=== PATIENT | male | born 2000 | race Caucasian/White ===

== ENCOUNTER 2020-09-18 06:58 | Emergency (ER) | payer OTHER ==
[2020-09-18 07:03] VITALS: TEMP 98
[2020-09-18] MEDS ORDERED: KETOROLAC 15 MG/ML 1 ML VIAL IM STA (07:21)
--- NOTE | 2020-09-18 07:40 | XR ---
EXAMINATION TYPE: XR chest 2V DATE OF EXAM: 09/18/2020 COMPARISON: NONE TECHNIQUE: PA and lateral views submitted. HISTORY: Right-sided chest FINDINGS: The lungs are clear and there is no pneumothorax, pleural effusion, or focal pneumonia. Heart size normal. No overt failure. Osseous structures appear intact. IMPRESSION: 1. No acute process.
--- NOTE | 2020-09-18 08:07 | ED ---
General Adult HPI - General Chief complaint: Chest Pain Stated complaint: Chest Pain Time Seen by Provider: 09/18/20 07:05 Source: patient Mode of arrival: ambulatory Limitations: no limitations - History of Present Illness Initial comments: Patient is a 20-year-old male presenting to the emergency Department with complaints of right-sided chest pain has been going on for the last couple hours. He describes the pain as sharp on the right side of his chest. He states it worsens when he takes in a deep breath or when he pushes on the area. He denies any shortness of breath. Denies any recent fevers or chills. He states he does have a mild cough. He does smoke Vape. Denies any nausea or vomiting, no abdominal pain. Denies any falls or trauma to the area. He takes no medications. He has no further complaints. Upon arrival to the ER, his vitals are stable. - Related Data Allergies Allergy/AdvReac Type Severity Reaction Status Date / Time No Known Allergies Allergy Verified 09/18/20 07:00 Review of Systems ROS Statement: Those systems with pertinent positive or pertinent negative responses have been documented in the HPI. ROS Other: All systems not noted in ROS Statement are negative. Past Medical History Past Medical History: No Reported History History of Any Multi-Drug Resistant Organisms: None Reported Past Surgical History: No Surgical Hx Reported Past Psychological History: No Psychological Hx Reported Smoking Status: Vaper Past Alcohol Use History: Rare Past Drug Use History: None Reported General Exam - General Exam Comments Initial Comments: GENERAL: Patient is well-developed and well-nourished. Patient is nontoxic and in no acute distress. HEAD: Atraumatic, normocephalic. EYES: Pupils equal round and reactive to light, extraocular movements intact, sclera anicteric, conjunctiva are normal. Eyelids were unremarkable. ENT: TMs normal, nares patent, oropharynx clear without exudates. Moist mucous membranes. NECK: Normal range of motion, supple without lymphadenopathy or JVD. LUNGS: Unlabored respirations. Breath sounds clear to auscultation bilaterally and equal. No wheezes rales or rhonchi. Pain on the right side of the chest with deep inhalation HEART: Regular rate and rhythm without murmurs, rubs or gallops. ABDOMEN: Soft, nontender, normoactive bowel sounds. No guarding, no rebound. No masses appreciated. : Deferred MUSCULOSKELETAL: Normal extremities with adequate strength and normal range of motion, no pitting or edema. No clubbing or cyanosis. Patient has tenderness with palpation to the right side of the sternum, right ribs. NEUROLOGICAL: Patient is alert and oriented x 3. Motor and sensory are also intact. Cranial nerves II through XII grossly intact. Symmetrical smile. Normal speech, normal gait. PSYCH: Normal mood, normal affect. SKIN: Warm, Dry, normal turgor, no rashes or lesions noted. Limitations: no limitations Course Vital Signs 09/18/20 07:00 Temperature 98.0 F Pulse Rate 77 Respiratory 16 Rate Blood Pressure 133/85 O2 Sat by Pulse 100 Oximetry EKG Findings - EKG Comments: EKG Findings:: Normal sinus rhythm, normal ECG. No signs of acute process. A ventricular rate 85, UT of 150, QT 356. Medical Decision Making - Medical Decision Making Patient is a 20-year-old male presenting with right-sided chest pain over the past few hours. Denies any falls or trauma. His vital signs are stable. He does admit to being a daily vape smoker. EKG shows normal sinus rhythm, no acute process. Chest x-ray is normal. Patient was given some Toradol does report improvement in his symptoms. Discussed with patient this is most likely costochondritis. Recommended continue with anti-inflammatories as well as heat or ice to the area. I recommended discontinuing smoking vape. Follow-up with his PCP. Patient is stable for discharge. Patient is in agreement with this plan of care. Return parameters were discussed with the patient and they verbalized understanding. Case discussed with Dr. Dobbs. Disposition Clinical Impression: Atypical chest pain Disposition: HOME SELF-CARE Condition: Stable Instructions (If sedation given, give patient instructions): Costochondritis (ED) Additional Instructions: Please return to the Emergency Department if symptoms worsen or any other concerns. Recommended continue with anti-inflammatory such as Motrin or Aleve. May also use heat or ice to the area. Discontinue smoking vape. Follow-up with PCP. Is patient prescribed a controlled substance at d/c from ED?: No Referrals: Lana Crisostomo MD [Primary Care Provider] - 1-2 days Time of Disposition: 08:07
[2020-09-18 08:19] VITALS: BP 121/82; PULSE 84; RESP 18
== END 2020-09-18 08:19 | disposition home or self-care (01) ==
LOC: EC 06:58
DX: R07.89 Other chest pain (principal)
CPT/HCPCS: 93005; 71046; 99285; 96372; J1885

== ENCOUNTER 2020-11-22 | Emergency (ER) | payer OTHER | END 2020-11-23 01:32 | disposition home or self-care (01) | CPT/HCPCS: 72110; 99283 ==

== ENCOUNTER 2021-01-15 21:07 | Emergency (ER) | payer OTHER ==
[2021-01-15 21:13] VITALS: BP 131/74; PULSE 75; RESP 22; TEMP 99
--- NOTE | 2021-01-15 21:58 | XR ---
EXAMINATION TYPE: XR ankle complete RT DATE OF EXAM: 01/15/2021 COMPARISON: NONE HISTORY: Ankle pain TECHNIQUE: 3 views FINDINGS: Ankle mortise is anatomic. I see no fracture nor dislocation. Joint spaces are normal. IMPRESSION: Negative right ankle exam. No fracture.
--- NOTE | 2021-01-15 22:03 | ED ---
Lower Extremity Injury HPI - General Chief Complaint: Extremity Injury, Lower Stated Complaint: R foot injury Source: patient, family Mode of arrival: ambulatory Limitations: no limitations - History of Present Illness Initial Comments: Frederick is a healthy 20-year-old male presents the ER today for right-sided foot and ankle pain. Patient reports that yesterday he was laying softball, he was running to first base and he landed on the base awkwardly. Rolled his ankle. Was unable to continue running. His been limping since that time is able to bear weight but has pain in his heel and his ankle. - Related Data Previous Rx's Medication Instructions Recorded Cyclobenzaprine [Flexeril] 10 mg PO TID PRN #15 tab 11/23/20 Ibuprofen [Motrin] 600 mg PO Q8HR PRN #20 tab 11/23/20 predniSONE 50 mg PO DAILY #5 tab 11/23/20 Allergies Allergy/AdvReac Type Severity Reaction Status Date / Time No Known Allergies Allergy Verified 01/15/21 21:13 Review of Systems ROS Statement: Those systems with pertinent positive or pertinent negative responses have been documented in the HPI. ROS Other: All systems not noted in ROS Statement are negative. Past Medical History Past Medical History: No Reported History History of Any Multi-Drug Resistant Organisms: None Reported Past Surgical History: No Surgical Hx Reported Past Psychological History: No Psychological Hx Reported Smoking Status: Vaper Past Alcohol Use History: Rare Past Drug Use History: None Reported General Exam - General Exam Comments Initial Comments: Physical Exam GENERAL: Patient is well-developed and well-nourished. Patient is nontoxic and well-hydrated and is in no distress. HENT: Normocephalic, Atraumatic. EYES: PERRL, EOMI PULMONARY: Unlabored respirations. CARDIOVASCULAR: RRR Warm and well perfused extremities ABDOMEN: Non-distended SKIN: No rashes or bruising : Deferred NEUROLOGIC: Alert and oriented Normal speech MUSCULOSKELETAL: Moving all extremities with no apparent injury PSYCHIATRIC: No SI/HI Limitations: no limitations Course Vital Signs 01/15/21 21:11 Temperature 99 F Pulse Rate 75 Respiratory 22 Rate Blood Pressure 131/74 O2 Sat by Pulse 97 Oximetry Medical Decision Making - Medical Decision Making Physical exam is unremarkable there is mild swelling of the right ankle patient has not tried Tylenol Motrin ice elevation or compression X-rays negative, reported care was recommended patient discharged home in stable condition Disposition Clinical Impression: Ankle sprain Disposition: HOME SELF-CARE Condition: Stable Instructions (If sedation given, give patient instructions): Ankle Sprain (ED) Is patient prescribed a controlled substance at d/c from ED?: No Referrals: Sanam Chapin DO [Primary Care Provider] - 1-2 days
== END 2021-01-15 22:18 | disposition home or self-care (01) ==
LOC: EC 21:07
DX: S93.401A Sprain of unspecified ligament of right ankle, initial encounter (principal); F17.290 Nicotine dependence, other tobacco product, uncomplicated; X50.1XXA Overexertion from prolonged static or awkward postures, initial encounter
CPT/HCPCS: 99283

== ENCOUNTER 2021-02-19 23:33 | Emergency (ER) | payer OTHER ==
[2021-02-20] VITALS: BP 128/84; PULSE 83; RESP 16; TEMP 99.3
[2021-02-20] MEDS ORDERED: AMOXICILLIN 500MG STARTER PACK 3 CAP BTL PO STA (00:44)
--- NOTE | 2021-02-20 00:45 | ED ---
ENT HPI - General Chief complaint: ENT Stated complaint: Ear Ache Time Seen by Provider: 02/20/21 00:09 Source: patient, RN notes reviewed Mode of arrival: ambulatory Limitations: no limitations - History of Present Illness Initial comments: Patient is a 20-year-old male presenting to emergency Department with complaints of earache in the right ear for the past 2 days. Patient states he's been having right nose, sneezing and some mild congestion but the ears been hurting at night. Denies any fevers or chills, no abdominal pain, nausea or vomiting, no chest pain or shortness of breath. He denies any injuries to his ear. He has no further complaints. - Related Data Previous Rx's Medication Instructions Recorded Cyclobenzaprine [Flexeril] 10 mg PO TID PRN #15 tab 11/23/20 Ibuprofen [Motrin] 600 mg PO Q8HR PRN #20 tab 11/23/20 predniSONE 50 mg PO DAILY #5 tab 11/23/20 Amoxicillin 500 mg PO Q8H 5 Days #15 cap 02/20/21 Allergies Allergy/AdvReac Type Severity Reaction Status Date / Time No Known Allergies Allergy Verified 02/19/21 23:56 Review of Systems ROS Statement: Those systems with pertinent positive or pertinent negative responses have been documented in the HPI. ROS Other: All systems not noted in ROS Statement are negative. Past Medical History Past Medical History: No Reported History History of Any Multi-Drug Resistant Organisms: None Reported Past Surgical History: No Surgical Hx Reported Past Psychological History: No Psychological Hx Reported Smoking Status: Vaper Past Alcohol Use History: Rare Past Drug Use History: None Reported General Exam - General Exam Comments Initial Comments: GENERAL: Patient is well-developed and well-nourished. Patient is nontoxic and in no acute distress. HEAD: Atraumatic, normocephalic. EYES: Pupils equal round and reactive to light, extraocular movements intact, sclera anicteric, conjunctiva are normal. Eyelids were unremarkable. ENT: Left TM appears normal, right TM is erythematous, bulging, nares patent, oropharynx clear without exudates. Moist mucous membranes. NECK: Normal range of motion, supple without lymphadenopathy or JVD. LUNGS: Unlabored respirations. Breath sounds clear to auscultation bilaterally and equal. No wheezes rales or rhonchi. HEART: Regular rate and rhythm without murmurs, rubs or gallops. ABDOMEN: Soft, nontender, normoactive bowel sounds. No guarding, no rebound. No masses appreciated. : Deferred MUSCULOSKELETAL: Normal extremities with adequate strength and normal range of motion, no pitting or edema. No clubbing or cyanosis. SKIN: Warm, Dry, normal turgor, no rashes or lesions noted. Limitations: no limitations Course Vital Signs 02/19/21 23:56 Temperature 99.3 F Pulse Rate 83 Respiratory 16 Rate Blood Pressure 128/84 O2 Sat by Pulse 99 Oximetry Medical Decision Making - Medical Decision Making Patient is a 20-year-old male here for right ear pain for the past 2-3 days. He said some mild cold-like symptoms as well. His vitals are stable, no injury or trauma. Exam reveals some mild otitis media in the right side. We'll start him on amoxicillin. Recommend Claritin. He is agreeable this and he is stable for discharge. Disposition Clinical Impression: Right otitis media Disposition: HOME SELF-CARE Condition: Stable Instructions (If sedation given, give patient instructions): Ear Infection (ED) Additional Instructions: Please return to the Emergency Department if symptoms worsen or any other concerns. Take anabolic as prescribed. Take motrin for pain. Prescriptions: Amoxicillin 500 mg PO Q8H 5 Days #15 cap Is patient prescribed a controlled substance at d/c from ED?: No Referrals: Sanam Chapin DO [Primary Care Provider] - 1-2 days Time of Disposition: 00:45
== END 2021-02-20 00:53 | disposition home or self-care (01) ==
LOC: EC 23:33
DX: H66.91 Otitis media, unspecified, right ear (principal); F17.290 Nicotine dependence, other tobacco product, uncomplicated
CPT/HCPCS: 99283

== ENCOUNTER 2021-05-02 09:52 | Emergency (ER) | payer OTHER ==
[2021-05-02 10:15] VITALS: BP 155/94; PULSE 103; TEMP 99.3
[2021-05-02] MEDS ORDERED: ACETAMINOPHEN TAB 500 MG TAB PO STA (10:26)
--- NOTE | 2021-05-02 10:28 | ED ---
General Adult HPI - General Chief complaint: Fever Stated complaint: fever Time Seen by Provider: 05/02/21 10:19 Source: patient, RN notes reviewed Mode of arrival: ambulatory Limitations: no limitations - History of Present Illness Initial comments: Patient's a 20-year-old male with no significant past medical history, presented to the emergency room today with a chief complaint of cough, congestion, fever started yesterday. Patient states that he's not had a recent cold test. Patient denies feeling short of breath. Patient denies any recent fever, chills, shortness of breath, chest pain, back pain, abdominal pain, nausea or vomiting, visual changes, or any other complaints. - Related Data Previous Rx's Medication Instructions Recorded Cyclobenzaprine [Flexeril] 10 mg PO TID PRN #15 tab 11/23/20 Ibuprofen [Motrin] 600 mg PO Q8HR PRN #20 tab 11/23/20 predniSONE 50 mg PO DAILY #5 tab 11/23/20 Amoxicillin 500 mg PO Q8H 5 Days #15 cap 02/20/21 Allergies Allergy/AdvReac Type Severity Reaction Status Date / Time No Known Allergies Allergy Verified 02/19/21 23:56 Review of Systems ROS Statement: Those systems with pertinent positive or pertinent negative responses have been documented in the HPI. ROS Other: All systems not noted in ROS Statement are negative. Past Medical History Past Medical History: No Reported History History of Any Multi-Drug Resistant Organisms: None Reported Past Surgical History: No Surgical Hx Reported Past Psychological History: No Psychological Hx Reported Smoking Status: Vaper Past Alcohol Use History: Occasional Past Drug Use History: None Reported General Exam - General Exam Comments Initial Comments: General: The patient is awake and alert, in no distress, and does not appear acutely ill. Eye: There is normal conjunctiva bilaterally. No signs of icterus. Ears, nose, mouth and throat: There are moist mucous membranes and no oral lesions. Neck: The neck is supple Respiratory: respirations are non-labored Musculoskeletal: Normal ROM, no tenderness. Sensation intact. Neurological: A&O x 3. CN II-XII intact, There are no obvious motor or sensory deficits. Coordination appears grossly intact. Speech is normal. Skin: Skin is warm and dry and no rashes or lesions are noted. Psychiatric: Cooperative, appropriate mood & affect, normal judgment. Limitations: no limitations Course Vital Signs 05/02/21 05/02/21 10:11 10:41 Temperature 99.3 F Pulse Rate 103 H Respiratory 17 18 Rate Blood Pressure 155/94 O2 Sat by Pulse 100 Oximetry Medical Decision Making - Medical Decision Making Patient's covid test was positive here in The emergency room. Patient's pulse ox is stable. Was discussed with patient about myocardial antibody infusion. He has declined. Patient will be discharged home advised continue self isolated and return here to emergency room symptoms increase worsen or for any other concerns. He states understanding and is agreement. - Lab Data Lab Results 05/02/21 Range/Units 10:35 Coronavirus (PCR) Detected A (Not Detectd) Disposition Clinical Impression: COVID-19 Disposition: HOME SELF-CARE Condition: Good Instructions (If sedation given, give patient instructions): Coronavirus Dise ase 2019 (COVID-19) Additional Instructions: Please continue to self isolated home. Please return to emergency room if the symptoms increase or worsen or for any other concerns. Is patient prescribed a controlled substance at d/c from ED?: No Referrals: Sanam Chapin DO [Primary Care Provider] - 1-2 days
[2021-05-02 10:45] VITALS: RESP 18
== END 2021-05-02 11:20 | disposition home or self-care (01) ==
LOC: EC 09:52
DX: U07.1 COVID-19 (principal); F17.290 Nicotine dependence, other tobacco product, uncomplicated; Z79.52 Long term (current) use of systemic steroids; Z79.1 Long term (current) use of non-steroidal anti-inflammatories (NSAID)
CPT/HCPCS: 87635; 99283

== ENCOUNTER 2022-03-20 15:14 | Emergency (ER) | payer OTHER ==
[2022-03-20] MEDS ORDERED: KETOROLAC 15 MG/ML 1 ML VIAL IM STA (16:22)
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
[2022-03-20 20:06] VITALS: BP 106/71; PULSE 80; RESP 16; TEMP 98.2
== END 2022-03-20 20:06 | disposition home or self-care (01) ==
LOC: EC 15:14
DX: T07.XXXA Unspecified multiple injuries, initial encounter (principal); R10.9 Unspecified abdominal pain; F12.90 Cannabis use, unspecified, uncomplicated; V89.2XXA Person injured in unspecified motor-vehicle accident, traffic, initial encounter
CPT/HCPCS: 73590; 73130; 74177; 99284; 96372; J1885; Q9967